=== PATIENT | female | born 1965 | race Caucasian/White ===

== ENCOUNTER 2016-09-28 10:26 | Day surgery (SDC) | payer BC ==
[~2016-09-28] VITALS: Ht 166.4 cm; Wt 90.8 kg
[~2016-09-28 10:26] MED LIST: BIOT1TAB16 PO; CALC-969 PO; FLUT15.88 NAS; LIDOCAINE 1% (10mg/ml) 2ml SDV INJ ONE; LR 1,000 ML IV SCH; MULT1CAP32 PO; OLOP2.5D5 OP; PYRI25TA3 PO; RANI150T12 PO; TRIA1TAB3 PO
--- OUTSIDE RECORDS SUMMARY | 2016-09-28 10:30 | XMS REPORT ---
Author Author Ky Sloan Organization [facility] Address [address] [place] [address] Care Team Providers Care Business Asst Name Role Phone Ky Sloan Unavailable [phone] PROBLEMS Type Condition ICD9-CM Code [id number] Code Onset Dates Condition Status SNOMED Code Problem HTN (hypertension) I10 Active 06823614 Problem HLD (hyperlipidemia) E78.5 Active 92630944 Assessment Palpitation R00.2 May, Active 88831823 ALLERGIES Unknown Allergies SOCIAL HISTORY No smoking Hx information available PLAN OF CARE VITAL SIGNS MEDICATIONS Medication Instructions Dosage Frequency Start Date End Date Duration Status Verapamil HCl CR 120 MG Orally Once a day 1 tablet 24h 30 days Active RESULTS No Results PROCEDURES No Known procedures IMMUNIZATIONS No Known Immunizations
--- OUTSIDE RECORDS SUMMARY | 2016-09-28 10:30 | XMS REPORT ---
Author Author Ky Sloan [facility] eClinicalWorks Address Unknown Phone Unavailable Care Team Providers Care Master Police Detective Name Role Phone Ky Sloan CP Unavailable Allergies No Known Allergies Problems Problem Type Condition Code Onset Dates Condition Status Problem HLD (hyperlipidemia) E78.5 Active Problem HTN (hypertension) I10 Active Medications No Known Medications Results No Known Results Summary Purpose eClinicalWorks Submission
--- OUTSIDE RECORDS SUMMARY | 2016-09-28 10:30 | XMS REPORT ---
Author Author Ky Sloan Organization eClinicalWorks Address Unknown Phone Unavailable Care Team Providers Care Fast Brim Pouncer Name Role Phone Ky Sloan CP Unavailable Allergies, Adverse Reactions, Alerts Substance Reaction Event Type N.K.D.A. Info Not Available Non Drug Allergy Problems Problem Type Condition Code Onset Dates Condition Status Problem HLD (hyperlipidemia) E78.5 Active Assessment Palpitation R00.2 Active Problem HTN (hypertension) I10 Active Assessment HTN (hypertension) I10 Active Assessment HLD (hyperlipidemia) E78.5 Active Medications Medication Code System Code Instructions Start Date End Date Status Dosage Vitamin B-[address] [facility] [address]-41 100 MG Orally Once a day 1 tablet Potassium Chloride ER [facility] [address]-97 10 MEQ Orally Twice a day 1 tablet with food Omeprazole [facility] [address]-92 40 MG Orally Once a day 1 capsule Biotin Maximum Strength [facility] [address] 61681 MCG Orally Once a day 1 tablet Calcium [facility] [address]-93 600 MG Orally Once a day 1 tablet with meals Womens One Daily [facility] [address]-61 Orally not defined Vitamin C [facility] [address]-47 1000 MG Orally Once a day 1 tablet Triamterene-HCTZ [facility] [address]-35 37.5-25 MG Orally Once a day 1 tablet in the morning Procedures Procedure Coding System Code Date Office Visit, New Pt., Level 4 CPT-4 86494 Apr 12, 2016 ELECTROCARDIOGRAM, COMPLETE CPT-4 69192 Apr 12, 2016 Vital Signs Date/Time: Apr 12, 2016 BMI 30.95 Index Weight 186 lbs Height 5 ft 5 in in Cardiac Monitoring Heart Rate 78 /min Oximetry 98 % Blood Pressure Diastolic 80 mm Hg Blood Pressure Systolic 122 mm Hg Results Name Result Date Reference Range Unit Abnormality Flag AtriaECW Summary Purpose eClinicalWorks Submission
--- OUTSIDE RECORDS SUMMARY | 2016-09-28 10:30 | XMS REPORT ---
Author Author Ky Sloan [facility] eClinicalWorks Address Unknown Phone Unavailable Care Team Providers Care Clothing Man Name Role Phone Ky Sloan CP Unavailable [...] Instructions Start Date End Date Status Dosage Biotin Maximum Strength [facility] [address] 34178 MCG Orally Once a day 1 tablet Vitamin C [facility] [address]-66 1000 MG Orally Once a day 1 tablet Potassium Chloride ER [facility] [address]-42 10 MEQ Orally Twice a day 1 tablet with food Vitamin B-6 [facility] [address]-85 100 MG Orally Once a day 1 tablet Womens One Daily [facility] [address]-55 Orally not defined Omeprazole [facility] [address]-03 40 MG Orally Once a day 1 capsule Verapamil HCl CR [facility] [address]-64 120 MG Orally Once a day 1 tablet Cetirizine HCl [facility] [address]-28 10 MG Orally Once a day 1 tablet Triamterene-HCTZ [facility] [address]-33 37.5-25 MG Orally Once a day 1 tablet in the morning Calcium [facility] [address]-28 600 MG Orally Once a day 1 tablet with meals Procedures Procedure Coding System Code Date Office Visit, Est Pt., Level 3 CPT-4 57356 May 01, 2016 ELECTROCARDIOGRAM, COMPLETE CPT-4 46957 May 01, 2016 Vital Signs Date/Time: May 01, 2016 BMI 31.18 Index Weight 187.4 lbs Height 5 ft 5 in in Cardiac Monitoring Heart Rate 64 /min Oximetry 98 % Blood Pressure Diastolic 80 mm Hg Blood Pressure Systolic 114 mm Hg Results Name Result Date Reference Range Unit Abnormality Flag AtriaECW Summary Purpose eClinicalWorks Submission
--- OUTSIDE RECORDS SUMMARY | 2016-09-28 10:30 | XMS REPORT | Summary of Care ---
Author Author Mata Mike M.D. Organization Unknown Address Unknown Phone Unavailable Care Team Providers Care Furnace Tender Name Role Phone Mata Mike M.D. Unavailable Unavailable Ivania Yeboah Unavailable Unavailable Unavailable Unavailable Functional Status Name Dates Details Functional status health issues are not documented Status: Name Dates Details Cognitive status health issues are not documented Status: Problems Name Dates Details GERD (gastroesophageal reflux disease) (530.81, K21.9) Status: Active Globus sensation (306.4, F45.8) Status: Active Laryngopharyngeal reflux (LPR) (478.79, K21.9) Status: Active Medications Name Dates Details Triamterene-HCTZ 37.5-25 MG Oral Tablet TAKE 1 TABLET DAILY. Quantity: 30 * Start 15-Jun-2016 Active Metoprolol Tartrate 25 MG Oral Tablet TAKE 1 TABLET TWICE DAILY. * Refills: 0 * Start 15-Jun-2016 Active Omeprazole 40 MG Oral Capsule Delayed Release TAKE 1 CAPSULE Bedtime * Quantity: 30 Refills: 0 * Start 15-Jun-2016 Active Biotin 10 MG Oral Tablet * Refills: 0 * Start 15-Jun-2016 Active Calcium + D 500-1000-40 MG-UNT-MCG Oral Tablet Chewable * Refills: 0 * Start 15-Jun-2016 Active Klor-Con 10 10 MEQ Oral Tablet Extended Release TAKE 1 TABLET TWICE DAILY. * Refills: 0 * Start 15-Jun-2016 Active Vitamin B-6 100 MG Oral Tablet * Refills: 0 * Start 15-Jun-2016 Active Multivitamins Oral Capsule * Refills: 0 * Start 15-Jun-2016 Active Zantac 150 MG Oral Tablet TAKE 1 TABLET BY MOUTH EVERY NIGHT AT BEDTIME * Quantity: 1 Refills: 3 Mata Mike M.D. * Start 15-Jun-2016 Active 30 Tablet Bottle Vitamin C 500 MG Oral Capsule * Refills: 0 * Start 14-Sep-2016 Active Allergies and Adverse Reactions Name Dates Details No Known Drug Allergies (Allergy) Status: Active Procedures Procedure Dates Details History of Neuroplasty Median Nerve At Carpal Tunnel History of Dilation And Curettage Procedures not documented Immunization Name Dates Details Immunizations not documented Family History Name Dates Details Family history of thyroid disease (V18.19, Z83.49) Status: Active Name Dates Details Family history of acute myeloid leukemia (V16.6, Z80.6) Status: Active Name Dates Details Family history of hypertension (V17.49, Z82.49) Status: Active Social History Name Dates Details - Status: Name Dates Details Never smoker Vital Signs Date Test Result Details 14-Sep-2016 14:25 Temperature 97.7 f Status: Comments: Method: Heart Rate 78 /min Status: Comments: Location: ; Physical Findings 94 Status: Comments: O2 Saturation Results Date Description Value Details Results not documented Plan of Care Name Dates Details Planned Observations Planned Goals not documented Instructions Name Dates Details Instructions not documented Encounters Appointment; Mata Mike M.D. Encounter Diagnosis: Problem not documented On 15-Jun-2016 08:45
--- OUTSIDE RECORDS SUMMARY | 2016-09-28 10:30 | XMS REPORT | Summary of Care ---
Author Author Mata Mike M.D. Organization Unknown Address Unknown Phone Unavailable Care Team Providers Care Lace Finisher Name Role Phone Mata Mike M.D. Unavailable Unavailable Ivania Yeboah Unavailable Unavailable Unavailable Unavailable Functional Status Name Dates Details Functional status health issues are not documented Status: Name Dates Details Cognitive status health issues are not documented Status: Problems Name Dates Details GERD (gastroesophageal reflux disease) (530.81, K21.9) Status: Active Laryngopharyngeal reflux (LPR) (478.79, J38.7) Status: Active Globus sensation (306.4, F45.8) Status: Active Medications Name Dates Details Triamterene-HCTZ [...] * Refills: 0 * Start 15-Jun-2016 Active Verapamil HCl - 120 MG Oral Tablet TAKE 1 TABLET DAILY. * Refills: 0 * Start 15-Jun-2016 Active Vitamin B-6 100 MG Oral Tablet * Refills: 0 * Start 15-Jun-2016 Active Multivitamins Oral Capsule * Refills: 0 * Start 15-Jun-2016 Active Zantac 150 MG Oral Tablet TAKE 1 TABLET BY MOUTH EVERY NIGHT AT BEDTIME * Quantity: 1 Refills: 3 Mata Mike M.D. * Start 15-Jun-2016 Active 30 Tablet Bottle Allergies and Adverse Reactions Name Dates Details [...] smoker Vital Signs Date Test Result Details 15-Jun-2016 08:45 Temperature 97.5 f Status: Comments: Method: Heart Rate 65 /min Status: Comments: Location: ; Physical Findings 98 Status: Comments: O2 Saturation Results Date Description Value Details Results not documented Plan of Care Name Dates Details Planned Observations Planned Goals not documented Planned Encounters Appointment; Provider: Mata Mike M.D. On 14-Sep-2016 13:15 Interventions Provided Medication Changes* Zantac 150 MG Oral Tablet - Start Instructions Name Dates Details Instructions not documented Encounters Appointment; Mata Mike M.D. Encounter Diagnosis: Problem not documented On 15-Jun-2016 08:45
--- OUTSIDE RECORDS SUMMARY | 2016-09-28 10:30 | XMS REPORT ---
Author Author Ky Sloan Organization [facility] Address [address] [place] [address] Care Team Providers Care Stock Digger Name Role Phone Ky Sloan Unavailable [phone] PROBLEMS Type Condition ICD9-CM Code IIJ10-VP Code Onset Dates Condition Status SNOMED Code Problem Palpitation R00.2 Active 10868367 Problem HTN (hypertension) I10 Active 02804558 Problem HLD (hyperlipidemia) E78.5 Active 48488073 Assessment Palpitation R00.2 Jul, Active 70125276 ALLERGIES Substance Reaction Event Type Date Status N.K.D.A. Unknown Non Drug Allergy Jul, Unknown SOCIAL HISTORY No smoking Hx information available PLAN OF CARE Activity Details Pending Test AtriaECW 6 Months,Reason: VITAL SIGNS Height 66 in 2016-07-31 Weight 190 lbs 2016-07-31 BMI 30.66 kg/m2 2016-07-31 Oximetry 97 % 2016-07-31 Heart Rate 84 /min 2016-07-31 Blood pressure systolic 122 mm Hg 2016-07-31 Blood pressure diastolic 81 mm Hg 2016-07-31 MEDICATIONS Medication Instructions Dosage Frequency Start Date End Date Duration Status Metoprolol Tartrate 25 MG Orally Twice a day 1 tablet with food 12h May Active Biotin Maximum Strength 80870 MCG Orally Once a day 1 tablet 24h Active Omeprazole 40 MG Orally Once a day 1 capsule 24h Active Ranitidine HCl 150 MG Orally Once a day 1 capsule at bedtime 24h Active Triamterene-HCTZ 37.5-25 MG Orally Once a day 1 tablet in the morning 24h Active Potassium Chloride ER 10 MEQ Orally Twice a day 1 tablet with food 12h Active Vitamin C 1000 MG Orally Once a day 1 tablet 24h Active Vitamin B-6 100 MG Orally Once a day 1 tablet 24h Active Womens One Daily Active Calcium 600 MG Orally Once a day 1 tablet with meals 24h Active Loratadine 10 MG Orally Once a day 1 tablet 24h Active RESULTS No Results PROCEDURES Procedure Date Ordered Related Diagnosis Body Site ELECTROCARDIOGRAM, COMPLETE Jul 31, 2016 Office Visit, Est Pt., Level 3 Jul 31, 2016 IMMUNIZATIONS No Known Immunizations
--- OUTSIDE RECORDS SUMMARY | 2016-09-28 10:31 | XMS REPORT ---
Author Author Ky Sloan [facility] eClinicalWorks Address Unknown Phone Unavailable Care Team Providers Care Quilting Supervisor Name Role Phone Ky Sloan CP Unavailable Allergies No Known Allergies Problems Problem Type Condition Code Onset Dates Condition Status Problem HLD (hyperlipidemia) E78.5 Active Problem HTN (hypertension) I10 Active Medications No Known Medications Results No Known Results Summary Purpose eClinicalWorks Submission
--- OUTSIDE RECORDS SUMMARY | 2016-09-28 10:31 | XMS REPORT | Continuity of Care Document ---
Author Author [facility] Organization [facility] Address Unknown Phone Unavailable Support Name Relationship Address Phone LUIS E PURDY MD Caregiver [address] [place] [address] Unavailable ERYN CUEVA MD Caregiver [address] [place] [address] Unavailable RADAMES CHENEY Next Of Kin [id number] [address] C Insurance Providers Guarantor JigarTimo Aneesh Address [address] [id number] CELL Email [email or web address] Policy Number [id number] Subscriber's Name Radames Cheney Relationship 01 Spouse Group Number [id number] Effective Date 15 Chief Complaint and Reason for Visit Chief Complaint Palpitations Reason for Visit Tachycardia Problems Past Problems Medical Problem Onset Date Palpitations Unknown Tachycardia Unknown Transient hypertension Unknown Medications Current Home Medications Medication Dose Units Route Directions Days Qty Instructions Start Date Multivitamin (Multivitamins) 1 Each Capsule 1 Cap Oral Daily 11/16 Omeprazole (Prilosec) 40 Mg Capsule.dr 1 Cap Oral Daily 04/08/16 Triamterene/Hydrochlorothiazid (Triamterene-Hctz 37.5-25 Mg Tb) 1 Each Tablet 1 Tab Oral Daily 04/08/16 Verapamil Hcl (Verapamil Sr) 120 Mg Cap24h.pel 1 Tab Oral Daily 30 04/24/16 Social History Social History Problem Response Recorded Date/Time Onset Date Status Hx Substance Use No 04/24/2016 3:20am Not Applicable Not Applicable Hx Alcohol Use No 04/24/2016 3:20am Not Applicable Not Applicable Query Response Start Date Stop Date Smoking Status Never smoker Hospital Discharge Instructions No hospital discharge instructions. Plan of Care Discharge Date 04/24/16 4:22am Disposition 01 DISCHARGED HOME, SELF-CARE Condition at Discharge Improved Instructions/Education Provided DI for Tachycardia Prescriptions See Medication Section Referrals ERYN CUEVA MD Address: [address] [place] [address] [place] [address] Additional Instructions/Education Verapamil 120 mg, one tablet daily See Dr. Gardiner in one week for recheck, call his office to make the appointment tomorrow Care Plan and Goals Physician Care Plan Problem: Recurrent tachycardia Goal: Follow up with primary care provider Instructions: Take medications and follow care plan as discussed/written Verapamil 120 mg, one tablet daily See Dr. Gardiner in one week for recheck, call his office to make the appointment tomorrow Functional Status No functional status results. Allergies, Adverse Reactions, Alerts No known allergies. Immunizations No immunization records. Vital Signs Acute Vital Signs Vital Response Date/Time Temperature (Fahrenheit) 98.0 deg F (96.8 - 99.1) 04/24/2016 4:22am Temperature (Calculated Celsius) 36.42635 degrees C (36.0 - 37.3) 04/24/2016 4:22am Pulse Rate (adult) 75 bpm (60 - 100) 04/24/2016 4:22am Respiratory Rate 18 breaths/min (10 - 20) 04/24/2016 4:22am O2 Sat by Pulse Oximetry 94 % (90 - 100) 04/24/2016 4:22am Blood Pressure 123/75 mm Hg 04/24/2016 4:22am Height (Feet) 5 feet 04/24/2016 3:16am Height (Inches) 5.00 inches 04/24/2016 3:16am Weight (Kilograms) 86.100 kg 04/24/2016 3:16am Body Mass Index (BMI) 31.0 04/24/2016 3:16am Results Laboratory Results Test Name Result Units Flags Reference Collection Date/Time Result Date/ Time Comments White Blood Count 5.0 T/MM3 4.5-11.0 04/08/2016 2:44am 04/08/2016 2: 50am Red Blood Count 4.25 M/MM3 4.00-5.20 04/08/2016 2:44am 04/08/2016 2: 50am Hemoglobin 12.9 GM/DL 12-16 04/08/2016 2:44am 04/08/2016 2:50am Hematocrit 38.3 % 36-46 04/08/2016 2:44am 04/08/2016 2:50am Mean Corpuscular Volume 90.1 UM3 80-100 04/08/2016 2:44am 04/08/2016 2: 50am Mean Corpuscular Hemoglobin 30.4 UUG 26-34 04/08/2016 2:44am 2015 2:50am Mean Corpuscular Hemoglobin Concent 33.7 GM/DL 31-37 04/08/2016 2:44am 04/08/2016 2:50am RDW Standard Deviation 43.3 FL 36.9-50.2 04/08/2016 2:44am 04/08/2016 2 :50am Platelet Count 214 T/MM3 130-400 04/08/2016 2:44am 04/08/2016 2:50am Mean Platelet Volume 10.3 UM3 9.4-12.4 04/08/2016 2:44am 04/08/2016 2: 50am Neutrophils (%) (Auto) 51.3 % 33-66 04/08/2016 2:44am 04/08/2016 2: 50am Lymphocytes (%) (Auto) 39.2 % 23-45 04/08/2016 2:44am 04/08/2016 2: 50am Monocytes (%) (Auto) 6.1 % 0-9.0 04/08/2016 2:44am 04/08/2016 2:50am Eosinophils (%) (Auto) 3.0 % 0-4 04/08/2016 2:44am 04/08/2016 2:50am Basophils (%) (Auto) 0.4 % 0-2 04/08/2016 2:44am 04/08/2016 2:50am Immature Granulocyte % (Auto) 0.0 % 0.0-0.5 04/08/2016 2:44am 2015 2:50am Absolute Neutrophils (auto) 2.5 T/MM3 1.8-7.7 04/08/2016 2:44am 2015 2:50am Absolute Lymphocytes (auto) 1.9 T/MM3 1-4.8 04/08/2016 2:44am 2015 2:50am Absolute Monocytes (auto) 0.3 T/MM3 0-0.8 04/08/2016 2:44am 04/08/2016 2:50am Absolute Eosinophils (auto) 0.2 T/MM3 0-0.5 04/08/2016 2:44am 2015 2:50am Absolute Basophils (auto) 0.0 T/MM3 0-0.2 04/08/2016 2:44am 04/08/2016 2:50am Absolute Immature Granulocyte (auto 0.00 T/MM3 0.00-0.03 04/08/2016 2: 44am 04/08/2016 2:50am Icterus Index < 2 0-7 04/08/2016 2:44am 04/08/2016 3:05am Chemistry Specimen Hemolysis < 15 0-25 04/08/2016 2:44am 04/08/2016 3 :05am 0-25: Specimen Exhibited No Hemolysis. Turbidity < 20 0-20 04/08/2016 2:44am 04/08/2016 3:05am Sodium Level 144 MEQ/L 134-144 04/08/2016 2:44am 04/08/2016 3:05am Potassium Level 3.2 MEQ/L L 3.6-5 04/08/2016 2:44am 04/08/2016 3:05am Chloride Level 105 MEQ/L 98-107 04/08/2016 2:44am 04/08/2016 3:05am Carbon Dioxide Level 27 MEQ/L 22-30 04/08/2016 2:44am 04/08/2016 3: 05am Anion Gap 12 MEQ/L 5-15 04/08/2016 2:44am 04/08/2016 3:05am Blood Urea Nitrogen 16.0 MG/DL 7-17 04/08/2016 2:44am 04/08/2016 3: 05am Creatinine 0.8 MG/DL 0.7-1.2 04/08/2016 2:44am 04/08/2016 3:05am BUN/Creatinine Ratio 20 RATIO 6-26 04/08/2016 2:44am 04/08/2016 3:05am Glomerular Filtration Rate Calc 75 04/08/2016 2:44am 04/08/2016 3: 05am Glucose Level 106 MG/DL 65-110 04/08/2016 2:44am 04/08/2016 3:05am Calculated Osmolality 278 MOSM/KG 261-280 04/08/2016 2:44am 04/08/2016 3:05am Calcium Level 9.5 MG/DL 8.4-10.2 04/08/2016 2:44am 04/08/2016 3:05am Total Bilirubin 0.50 MG/DL 0.20-1.30 04/08/2016 2:44am 04/08/2016 3: 05am Alkaline Phosphatase 68 U/L 38-126 04/08/2016 2:44am 04/08/2016 3:05am Total Protein 6.9 G/DL 6.3-8.2 04/08/2016 2:44am 04/08/2016 3:05am Albumin 4.2 G/DL 3.5-5.0 04/08/2016 2:44am 04/08/2016 3:05am Globulin 2.7 G/DL 2.4-3.6 04/08/2016 2:44am 04/08/2016 3:05am Albumin/Globulin Ratio 1.6 RATIO 1.1-2.2 04/08/2016 2:44am 04/08/2016 3 :05am Aspartate Amino Transf (AST/SGOT) 32 U/L 14-36 04/08/2016 2:44am 2015 3:05am Alanine Aminotransferase (ALT/SGPT) 35 U/L 9-52 04/08/2016 2:44am 04/08 3:05am Troponin I < 0.012 ng/ml 0-0.12 04/08/2016 2:44am 04/08/2016 3:17am Troponin values with a difference of 55% increase from orginal troponin value represent a true biological DELTA value. (%increase Calc=Orginal Troponin value, divided by subsequent Troponin value, multiplied by 100) Thyroid Stimulating Hormone (TSH) 2.80 MIU/L 0.47-4.68 04/08/2016 2: 44am 04/08/2016 3:35am Urine Collection Type CLEANCATCH-MIDSTREAM 04/08/2016 3:232015 3:28am Urine Color YELLOW YELLOW 04/08/2016 3:23am 04/08/2016 3:28am Urine Turbidity CLEAR CLEAR 04/08/2016 3:23am 04/08/2016 3:28am Urine Specific [place] 1.010 L 1.015-1.025 04/08/2016 3:23am 2015 3:28am Urine pH 7.0 5.0-8.0 04/08/2016 3:23am 04/08/2016 3:28am Urine Leukocyte Esterase NEGATIVE NEGATIVE 04/08/2016 3:23am 2015 3:28am Urine Nitrite NEGATIVE NEGATIVE 04/08/2016 3:23am 04/08/2016 3:28am Urine Protein NEGATIVE NEGATIVE 04/08/2016 3:23am 04/08/2016 3:28am Urine Glucose (UA) NEGATIVE NEGATIVE 04/08/2016 3:23am 04/08/2016 3: 28am Urine Ketones NEGATIVE NEGATIVE 04/08/2016 3:23am 04/08/2016 3:28am Urine Urobilinogen 0.2 EU/DL NORMAL 04/08/2016 3:23am 04/08/2016 3: 28am Urine Bilirubin NEGATIVE NEGATIVE 04/08/2016 3:23am 04/08/2016 3: 28am Urine Blood NEGATIVE NEGATIVE 04/08/2016 3:23am 04/08/2016 3:28am Urinalysis Comment MICROSCOPIC NOT IND. 04/08/2016 3:23am 2015 3:28am Procedures Procedure Status Date Provider(s) COMP SCREEN MAMMOGRAM ADD-ON Completed 04/06/16 BREAST TOMOSYNTHESIS BI Completed 04/06/16 163297"SCREENING MAMMOGRAPHY, PRODUCING DIRECT DIGITAL IMAGE Completed COMPREHEN METABOLIC PANEL Completed 04/08/16 URINALYSIS AUTO W/O SCOPE Completed 04/08/16 ASSAY THYROID STIM HORMONE Completed 04/08/16 ASSAY OF TROPONIN QUANT Completed 04/08/16 COMPLETE CBC W/AUTO DIFF WBC Completed 04/08/16 ELECTROCARDIOGRAM TRACING Completed 04/08/16 ELECTROCARDIOGRAM TRACING Completed 04/08/16 EMERGENCY DEPT VISIT Completed 04/08/16 Encounters Encounter Location Arrival/Admit Date Discharge/Depart Date Attending Provider Departed Emergency Room [facility] 04/24/16 3:13am 04/24/16 4: 22am LUIS E PURDY MD Departed Emergency Room [facility] 04/08/16 2:17am 04/08/16 3: 56am LUIS E PURDY MD Registered Clinic [facility] 04/06/16 11:16am ROSLYN [facility] Recent Diagnosis
[2016-09-28] MEDS ORDERED: P-EP-93 PO (10:47)
[2016-09-28] MEDS ORDERED: POTA10TA10 PO (10:47)
[2016-09-28] MEDS ORDERED: METO25TA6 PO (10:47)
[2016-09-28 10:48] VITALS: Ht 166.4 cm; Wt 90.8 kg
[2016-09-28 10:51] VITALS: BP 133/81; PULSE 72; RESP 16; TEMP 97.2; O2SAT 97
[2016-09-28 12:28] VITALS: BP 103/81; PULSE 74; RESP 10; TEMP 97.5; O2SAT 96
--- NOTE | 2016-09-28 12:37 | ANESPREOP ---
Anesthesia Record Date and Time DATE: 09/28/16 TIME: 1150 Proposed Surgical Procedure SCREENING COLONOSCOPY Allergies: Coded Allergies: No Known Allergies (Unverified , 04/24/16) Ht/Wt/BMI Height: 5 ' 5.50 " Weight: 90.800 kg BMI: 32.8 kg/m2 Vital Signs Date Time Temp Pulse Resp B/P Pulse Ox O2 Delivery O2 Flow Rate FiO2 09/28/16 12:28 97.5 74 10 103/81 96 Room Air Medications Inpatient Medications Current Medications Medications (Trade) Dose Ordered Sig/Fabienne Start Time Stop Time Status Last Admin Dose Admin Lactated Ringer's (Lactated Ringers) 1,000 ml @ 50 mls/hr Q20H 09/28/16 07:00 09/28/16 10:59 50 MLS/HR Biotin (Biotin) 1 Mg Tablet, 0 PO DAILY, (Reported) Last Taken: on 09/27/16 Calcium Carbonate/Vitamin D3 (Calcium 500 + D Tablet) 1 Each Tablet, 1 TAB PO BID, (Reported) Last Taken: on 09/27/16 Loratadine/Pseudoephedrine (Claritin-D 12 Hour Tablet) 1 Each Tab.er.12h, 1 TAB PO HS, (Reported) Last Taken: on 09/27/16 Metoprolol Tartrate (Metoprolol Tartrate) 25 Mg Tablet, 25 MG PO BIDWM, (Reported) Take 1 tab, by mouth, two time a day with meals. Last Taken: on 09/27/16 Multivitamin (Multivitamins) 1 Each Capsule, Unknown Dose PO DAILY, (Reported) Last Taken: on 09/27/16 Potassium Chloride (Klor-Con 10) 10 Meq Tablet.er, 1 TAB PO BID, (Reported) Last Taken: on 09/27/16 Pyridoxine HCl (Vitamin B-6) 25 Mg Tablet, TAB PO DAILY, (Reported) Last Taken: on 09/27/16 Ranitidine HCl (Zantac) 150 Mg Tablet, 150 MG PO DAILY, (Reported) Last Taken: on 09/26/16 2100 Triamterene/Hydrochlorothiazid (Triamterene- Hctz 37.5-25 mg Tb) 1 Each Tablet, 1 TAB PO DAILY, (Reported) Last Taken: on 09/27/16 Currently on Beta Celestine: Yes Beta Celestine Last Taken: 09/27/16 Medical/Surgical History Anesthesia PMH: Reports: *Hypertension, Reflux, Denies: *Angina, *Diabetes, *HI , Anesthesia Reactions (NO AIRWAY ISSUES), Arthritis, Asthma, CHF, CVA/Stroke/ TIA, Cancer, Cardiac Arrythmia, Clotting Problems, Deep Vein Thrombosis, Glaucoma, Hiatal Hernia, Malignant Hyperthermia, Pacemaker, Pneumonia, Renal Disease, Seizures, Sleep Apnea, Thyroid Disease Smoking Status: Never smoker Has pt. smoked today?: No Use Chewing Tobacco?: No Second Hand Exposure: No Substance Use Type: does not use HX of Last Menstrual Period: OVER 1 YEAR AGO Past Surgical History Orthopedic Surgeries: Yes - CARPAL TUNNEL DARREN. Abdominal Surgeries: No Genitourinary Surgeries: No Cardiac Surgeries: No Endocrine Surgeries: No Reproductive Surgeries: Yes - D&C X2 Neurological Surgeries: No Ear Surgeries: No Nose Surgeries: No Throat Surgeries: No Other Surgeries: Yes - BREAST BX PER H&P Anesthesia Adverse Reactions: FOUND none Family Hx of Anesthesia Advers: none Hx of Motion Sickness: No Physical Exam Respiratory: Lungs clear Cardiovascular: FOUND Regular rate, rhythm Airway Assessment Mallampati Score: II TMD: 3 Fingerbreadths Neck Extension: Good Overall Assessment: No Airway Concerns ASA: 2 Plan Anesthesia Plan: TIVA Discussion Discussed risks/options/alternatives of anesthesia and questions answered. Patient consents. Nursing pain assessment noted. Attestation Statement Prior to the delivery of any anesthetic medication, I examined the patient, developed the plan, obtained the patient's consent and discussed the risk and benefits of the procedure with the patient/guardian. JOLLY KELLY CRNA Sep 28, 2016 12:37
--- NOTE | 2016-09-28 12:37 | ANESPO ---
Post-Op Note Date 09/28/16 Time: 12:37 Status Pt Participated in Evaluation: Pt participated in person Vital Signs Date Time Temp Pulse Resp B/P Pulse Ox O2 Delivery O2 Flow Rate FiO2 09/28/16 12:28 97.5 74 10 103/81 96 Room Air Respiratory Function: Airway patent Cardiovascular Function: Regular pulse Mental Status: Alert/oriented Pain Level Intensity: 0 Unable to Assess Pain Due To: Pt Sleeping Hydration: Taking po fluids Complications during Recovery None apparent Follow-Up Instructions Instructions Per Surgeon JOLLY KELLY CRNA Sep 28, 2016 12:37
[2016-09-28 12:45] VITALS: BP 118/66; PULSE 76; RESP 24; O2SAT 96
[2016-09-28 12:55] VITALS: BP 128/74; PULSE 68; RESP 24; O2SAT 96
--- NOTE | 2016-09-29 15:15 | OPNOTEPD ---
DATE 09/28/16 DATE OF PROCEDURE: 09/28/16 SURGEON: Ronald Canas MD PREOPERATIVE DIAGNOSIS Colorectal cancer surveillance. POSTOPERATIVE DIAGNOSES Colorectal cancer surveillance, mild sigmoid diverticulosis. PROCEDURE: Colonoscopy. ANESTHESIA: TIVA. BRIEF HISTORY/INDICATIONS Cierra is a 50-year-old patient of mine who presented to the clinic for comprehensive exam. We discussed colorectal cancer surveillance and decided to proceed with colonoscopy as a part of her screening. For completeness please refer to office notes. FINDINGS Upon colonoscopy there was evidence for angiodysplastic lesions, polyps or lois malignancies. The patient was found to have mild sigmoid diverticulosis. NARRATIVE OF PROCEDURE After informed consent was obtained, the patient was brought to the endoscopy suite and placed on the table in the left lateral decubitus position. The patient subsequently underwent total intravenous anesthesia by the nurse engineering specialist technician per my request. Next, a digital rectal examination was performed. Normal sphincter tone. No rectal masses were appreciated. An Olympus colonoscope was inserted in the anus and advanced with the lumen of the colon under direct visualization at all times until the cecum was ascertained. Triangulation of the tenia coli, ileocecal valve and appendiceal lumen were all visualized. The scope was then slowly withdrawn, again maintaining visualization of the lumen at all times. As stated above, the entire colon was without evidence for angiodysplastic lesions, polyps or lois malignancies. The patient was found to have mild diverticulosis. The scope continued to be withdrawn until it was brought forth back into the rectal vault. A J-maneuver was then performed. No worrisome perianal pathology was noted. The scope was allowed to straighten and was withdrawn through the anal verge. The patient tolerated the procedure without difficulty and was sent back to the preoperative area in stable condition. Due to the absence of findings upon this colonoscopy, Cierra will not need to undergo repeat screening colonoscopy until ten years from now unless new indications should arise.
== END 2016-09-28 13:05 | disposition home or self-care (01) ==
LOC: NSC 10:26
PROVIDERS: ATTEND Family Medicine
DX: Z12.11 Encounter for screening for malignant neoplasm of colon (principal); K57.30 Diverticulosis of large intestine without perforation or abscess without bleeding; I10 Essential (primary) hypertension; K21.9 Gastro-esophageal reflux disease without esophagitis; Z79.899 Other long term (current) drug therapy
CPT/HCPCS: 45378; J7120